=== PATIENT | male | born 1945 | race Caucasian/White ===

== ENCOUNTER 2017-06-12 04:49 | Emergency (ER) | payer OTHER ==
[~2017-06-12] VITALS: Ht 177.8 cm; Wt 93.4 kg
[2017-06-12] MEDS ORDERED: AMLODIPINE BESY10 MG PO (04:56)
[2017-06-12] MEDS ORDERED: LOSARTAN POTASS25 MG PO (04:56)
[2017-06-12] MEDS ORDERED: ASPIR-LOW81 MG PO (04:56)
[2017-06-12] MEDS ORDERED: PRESERVISION A1 EACH PO (04:57)
[2017-06-12] MEDS ORDERED: CENTRUM MEN'S1 EACH PO (04:58)
[2017-06-12] MEDS ORDERED: DOXYCYCLINE HY100 MG PO (04:58)
[2017-06-12] MEDS ORDERED: VITAMIN D2000 UNIT PO (04:58)
[2017-06-12] MEDS ORDERED: MELATONIN5 M2 PO (04:59)
[2017-06-12] MEDS ORDERED: AMBIEN5 MG PO (04:59)
[2017-06-12] MEDS ORDERED: KEFLEX500 MG PO (06:03)
== END 2017-06-12 06:11 | disposition home or self-care (01) ==
LOC: ED 04:49
DX: N39.0 Urinary tract infection, site not specified (principal); Z87.891 Personal history of nicotine dependence; Z91.030 Bee allergy status; Z91.038 Other insect allergy status; Z88.8 Allergy status to other drugs, medicaments and biological substances; Z79.899 Other long term (current) drug therapy; Z79.82 Long term (current) use of aspirin
CPT/HCPCS: 81001; 87077; 87088; 87186; 99283